=== PATIENT | female | born 1980 | race Caucasian/White ===

== ENCOUNTER 2023-07-07 18:49 | Emergency (ER) | payer MEDICAID, OTHER ==
[~2023-07-07] VITALS: Ht 149.9 cm; Wt 68.9 kg
[2023-07-07 22:20] VITALS: BP 130/80; TEMP 98.6; O2SAT 99
== END 2023-07-07 22:20 | disposition home or self-care (01) ==
LOC: ER 18:55
DX: A08.4 Viral intestinal infection, unspecified (principal); Z20.822 Contact with and (suspected) exposure to COVID-19